=== PATIENT | male | born 1985 | race African-American/Black ===

== ENCOUNTER 2017-02-22 21:45 | Emergency (ER) | payer OTHER ==
[~2017-02-22] VITALS: Ht 170.2 cm; Wt 75.0 kg
[2017-02-22 21:46] VITALS: BP 129/80; PULSE 87; RESP 16; TEMP 97.9; O2SAT 98
--- NOTE | 2017-02-22 23:55 | PD ---
HPI Chief Complaint: Dizziness Time Seen by Provider: 23:39 Travel History International Travel<30 days: No Contact w/Intl Traveler<30days: No Traveled to known affect area: No History of Present Illness HPI 32-year-old male here with his and parents for evaluation of an episode of nauseousness, dizziness, lightheadedness. Symptoms occurred at around 6:00 PM it occurred suddenly while at rest. The patient did not have a syncopal episode , however he felt as though he may pass out. States that his symptoms have since improved. He has not had a fever, chills, cough, or recent illness. No chest pain or dyspnea. Apparently he has had a couple of similar episodes in the past. He is not on any medication. He denies alcohol or illicit drug use. He does not smoke cigarettes. No paresthesias or motor deficits. He still feels some mild generalized weakness. [facility]LY [facility] Past Medical History Immunizations Current: Yes Tetanus Vaccination: Unknown Influenza Vaccination: No Social History Alcohol Use: No Tobacco Use: No Substance Use: No Allergies-Medications (Allergen,Severity, Reaction): Coded Allergies: No Known Allergies (Unverified , 02/22/17) Reported Meds & Prescriptions Reported Meds & Active Scripts Active No Active Prescriptions or Reported Medications Review of Systems Except as stated in HPI: all other systems reviewed are Neg Physical Exam Narrative GENERAL: Well-developed, well-nourished, awake, alert, comfortable, no apparent distress. SKIN: Focused skin assessment warm/dry. No rashes. No pallor. HEAD: Atraumatic. Normocephalic. EYES: Pupils equal and round. No scleral icterus. No injection or drainage. ENT: Mucous membranes pink and moist. NECK: Trachea midline. No JVD. CARDIOVASCULAR: Regular rate and rhythm. Distal pulses brisk and equal bilaterally. RESPIRATORY: No accessory muscle use. Clear to auscultation. Breath sounds equal bilaterally. GASTROINTESTINAL: Abdomen soft, non-tender, nondistended. MUSCULOSKELETAL: No obvious deformities. No clubbing. No cyanosis. No edema. NEUROLOGICAL: Awake and alert. No obvious cranial nerve deficits. Motor grossly within normal limits. Normal speech. PSYCHIATRIC: Appropriate mood and affect; insight and judgment normal. Data Data Last Documented VS Vital Signs Date Time Temp Pulse Resp B/P (MAP) Pulse Ox O2 Delivery O2 Flow Rate FiO2 02/22/17 21:46 97.9 87 16 129/80 (96) 98 Room Air Orders Orders Electrocardiogram (02/22/17 22:02) Complete Blood Count With Diff (02/22/17 22:02) Comprehensive Metabolic Panel (02/22/17 22:02) Magnesium (Mg) (02/22/17 22:02) Ckmb (Isoenzyme) Profile (02/22/17 22:02) Troponin I (02/22/17 22:02) Influenzae A/B Antigen (02/22/17 23:45) Thyroid Stimulating Hormone (02/22/17 22:02) Sodium Chlorid 0.9% 500 Ml Inj (Ns 500 M (02/23/17 00:45) CKMB (02/23/17 00:30) CKMB% (02/23/17 00:30) Arterial Blood Gas (Abg) (02/23/17 ) Labs Laboratory Tests Test 02/22/17 23:50 02/23/17 00:30 White Blood Count 9.6 TH/MM3 Red Blood Count 5.28 MIL/MM3 Hemoglobin 15.6 GM/DL Hematocrit 46.6 % Mean Corpuscular Volume 88.3 FL Mean Corpuscular Hemoglobin 29.5 PG Mean Corpuscular Hemoglobin Concent 33.4 % Red Cell Distribution Width 13.7 % Platelet Count 216 TH/MM3 Mean Platelet Volume 9.8 FL Neutrophils (%) (Auto) 85.3 % Lymphocytes (%) (Auto) 9.4 % Monocytes (%) (Auto) 3.1 % Eosinophils (%) (Auto) 0.2 % Basophils (%) (Auto) 2.0 % Neutrophils # (Auto) 8.2 TH/MM3 Lymphocytes # (Auto) 0.9 TH/MM3 Monocytes # (Auto) 0.3 TH/MM3 Eosinophils # (Auto) 0.0 TH/MM3 Basophils # (Auto) 0.2 TH/MM3 CBC Comment AUTO DIFF Blood Urea Nitrogen 9 MG/DL Creatinine 1.26 MG/DL Random Glucose 93 MG/DL Total Protein 8.6 GM/DL Albumin 4.3 GM/DL Calcium Level 9.1 MG/DL Magnesium Level 2.3 MG/DL Alkaline Phosphatase 49 U/L Aspartate Amino Transf (AST/SGOT) 14 U/L Alanine Aminotransferase (ALT/SGPT) 22 U/L Total Bilirubin 0.2 MG/DL Sodium Level 139 MEQ/L Potassium Level 4.4 MEQ/L Chloride Level 105 MEQ/L Carbon Dioxide Level 27.7 MEQ/L Anion Gap 6 MEQ/L Estimat Glomerular Filtration Rate 81 ML/MIN Total Creatine Kinase 288 U/L Creatine Kinase MB LESS THAN 0.5 NG/ML Troponin I LESS THAN 0.02 NG/ML Thyroid Stimulating Hormone 3rd Gen 0.782 uIU/ML MDM Medical Decision Making Medical Screen Exam Complete: Yes Emergency Medical Condition: Yes Interpretation(s) EKG: Sinus, rate 88, leftward axis, normal intervals, no acute ischemic abnormality. Differential Diagnosis Syncope/near-syncope, dysrhythmia, metabolic abnormality, dehydration, vertigo, anemia, influenza/viral illness Narrative Course Vital signs are within normal limits. CBC is essentially unremarkable. CMP is unremarkable. TSH is 0.782. Cardiac enzymes are negative. Influenza is negative. The patient was given 500 cc of normal saline IV and feels significantly improved. He is overall very well-appearing. He is awake and alert and there are no focal deficits. His entire family were made aware of all findings. Just prior to discharging the patient, the patient's father who was in the room had a near syncopal episode. It is cold outside and they have been running their heater. ABG was ordered. This was signed out to my PA to follow-up with. If this is normal, then the patient can be discharged home with outpatient follow-up with his primary care physician this week. Diagnosis Primary Impression: Lightheadedness Additional Impression: Malaise Referrals: Primary Care Physician 3 days Additional Instructions: Follow-up with your primary care physician this week. Return to the emergency department for worsening symptoms or any other concerns. Scripts No Active Prescriptions or Reported Meds Disposition: 01 DISCHARGE HOME Condition: Stable Jack Nolen MD Feb 22, 2017 23:55
[2017-02-23 00:20] LABS: AUTOMATED NEUTROPHIL # 8.2 TH/MM3 (1.8-7.7); BASOPHIL # 0.2 TH/MM3 (0-0.2); EOSINOPHIL % 0.2 % (0.0-4.0); HEMATOCRIT 46.6 % (39.0-51.0); HEMOGLOBIN 15.6 GM/DL (13.0-17.0); LYMPH % 9.4 % (9.0-44.0); LYMPHOCYTE # 0.9 TH/MM3 (1.0-4.8); MEAN CELL VOLUME 88.3 FL (80.0-100.0); MEAN CORPUSCULAR HEMOGLOBIN 29.5 PG (27.0-34.0); MEAN CORPUSCULAR HGB CONC 33.4 % (32.0-36.0); MEAN PLATELET VOLUME 9.8 FL (7.0-11.0); MONO % 3.1 % (0.0-8.0); MONOCYTE # 0.3 TH/MM3 (0-0.9); NEUT % 85.3 % (16.0-70.0); PLATELET COUNT 216 TH/MM3 (150-450); RED BLOOD COUNT 5.28 MIL/MM3 (4.50-5.90); RED CELL DISTRIBUTION WIDTH 13.7 % (11.6-17.2); WHITE BLOOD COUNT 9.6 TH/MM3 (4.0-11.0)
[2017-02-23] MEDS ORDERED: SODIUM CHLORID 0.9% 500 ML INJ 500 ML IV ONE (00:45)
[2017-02-23 01:15] LABS: ALKALINE PHOSPHATASE 49 U/L (45-117); TOTAL BILIRUBIN ADULT 0.2 MG/DL (0.2-1.0); TOTAL PROTEIN 8.6 GM/DL (6.4-8.2); TROPONIN I LESS THAN 0.02 NG/ML (0.02-0.05)
[2017-02-23 01:16] LABS: ALBUMIN 4.3 GM/DL (3.4-5.0); ALT (GPT) 22 U/L (12-78); AST (GOT) 14 U/L (15-37); BLOOD UREA NITROGEN 9 MG/DL (7-18); CALCIUM 9.1 MG/DL (8.5-10.1); CHLORIDE 105 MEQ/L (98-107); CREATININE 1.26 MG/DL (0.60-1.30); GLOMERULAR FILTRATION RATE 81 ML/MIN (>89); GLUCOSE,RANDOM 93 MG/DL (74-106); MAGNESIUM 2.3 MG/DL (1.5-2.5)
[2017-02-23 01:17] LABS: BICARBONATE 27.7 MEQ/L (21.0-32.0); SODIUM (NA) 139 MEQ/L (136-145)
--- NOTE | 2017-02-23 02:25 | PD ---
Physical Exam Date Seen by Provider: Feb 23, 2017 Time Seen by Provider: 02:23 Data Data Last Documented VS Vital Signs Date Time Temp Pulse Resp B/P (MAP) Pulse Ox O2 Delivery O2 Flow Rate FiO2 02/22/17 21:46 97.9 87 16 129/80 (96) 98 Room Air Orders Orders Electrocardiogram (02/22/17 22:02) Complete Blood Count With Diff (02/22/17 22:02) Comprehensive Metabolic Panel (02/22/17 22:02) Magnesium (Mg) (02/22/17 22:02) Ckmb (Isoenzyme) Profile (02/22/17 22:02) Troponin I (02/22/17 22:02) Influenzae A/B Antigen (02/22/17 23:45) Thyroid Stimulating Hormone (02/22/17 22:02) Sodium Chlorid 0.9% 500 Ml Inj (Ns 500 M (02/23/17 00:45) CKMB (02/23/17 00:30) CKMB% (02/23/17 00:30) Arterial Blood Gas (Abg) (02/23/17 ) Labs Laboratory Tests Test 02/22/17 23:50 02/23/17 00:30 02/23/17 02:01 White Blood Count 9.6 TH/MM3 Red Blood Count 5.28 MIL/MM3 Hemoglobin 15.6 GM/DL Hematocrit 46.6 % Mean Corpuscular Volume 88.3 FL Mean Corpuscular Hemoglobin 29.5 PG Mean Corpuscular Hemoglobin Concent 33.4 % Red Cell Distribution Width 13.7 % Platelet Count 216 TH/MM3 Mean Platelet Volume 9.8 FL Neutrophils (%) (Auto) 85.3 % Lymphocytes (%) (Auto) 9.4 % Monocytes (%) (Auto) 3.1 % Eosinophils (%) (Auto) 0.2 % Basophils (%) (Auto) 2.0 % Neutrophils # (Auto) 8.2 TH/MM3 Lymphocytes # (Auto) 0.9 TH/MM3 Monocytes # (Auto) 0.3 TH/MM3 Eosinophils # (Auto) 0.0 TH/MM3 Basophils # (Auto) 0.2 TH/MM3 CBC Comment AUTO DIFF Differential Comment AUTO DIFF CONFIRMED Platelet Estimate NORMAL Platelet Morphology Comment NORMAL Blood Urea Nitrogen 9 MG/DL Creatinine 1.26 MG/DL Random Glucose 93 MG/DL Total Protein 8.6 GM/DL Albumin 4.3 GM/DL Calcium Level 9.1 MG/DL Magnesium Level 2.3 MG/DL Alkaline Phosphatase 49 U/L Aspartate Amino Transf (AST/SGOT) 14 U/L Alanine Aminotransferase (ALT/SGPT) 22 U/L Total Bilirubin 0.2 MG/DL Sodium Level 139 MEQ/L Potassium Level 4.4 MEQ/L Chloride Level 105 MEQ/L Carbon Dioxide Level 27.7 MEQ/L Anion Gap 6 MEQ/L Estimat Glomerular Filtration Rate 81 ML/MIN Total Creatine Kinase 288 U/L Creatine Kinase MB LESS THAN 0.5 NG/ML Troponin I LESS THAN 0.02 NG/ML Thyroid Stimulating Hormone 3rd Gen 0.782 uIU/ML Blood Gas Puncture Site LT RADIAL Blood Gas Patient Temperature 98.6 Blood Gas HCO3 25 mmol/L Blood Gas Base Excess 0.6 mmol/L Blood Gas Oxygen Saturation 95 % Arterial Blood pH 7.38 Arterial Blood Partial Pressure CO2 43 mmHg Arterial Blood Partial Pressure O2 86 mmHG Arterial Blood Oxygen Content 22.5 Vol % Arterial Blood Carboxyhemoglobin 0.5 % Arterial Blood Methemoglobin 0.9 % Blood Gas Hemoglobin 16.8 G/DL Oxygen Delivery Device ROOM AIR Blood Gas Inspired Oxygen 21 % [facility] Medical Record Reviewed: Yes Supervised Visit with ALEX: Yes Interpretation(s) Laboratory Tests Test 02/22/17 23:50 02/23/17 00:30 02/23/17 02:01 White Blood Count 9.6 TH/MM3 Red Blood Count 5.28 MIL/MM3 Hemoglobin 15.6 GM/DL Hematocrit 46.6 % Mean Corpuscular Volume 88.3 FL Mean Corpuscular Hemoglobin 29.5 PG Mean Corpuscular Hemoglobin Concent 33.4 % Red Cell Distribution Width 13.7 % Platelet Count 216 TH/MM3 Mean Platelet Volume 9.8 FL Neutrophils (%) (Auto) 85.3 % Lymphocytes (%) (Auto) 9.4 % Monocytes (%) (Auto) 3.1 % Eosinophils (%) (Auto) 0.2 % Basophils (%) (Auto) 2.0 % Neutrophils # (Auto) 8.2 TH/MM3 Lymphocytes # (Auto) 0.9 TH/MM3 Monocytes # (Auto) 0.3 TH/MM3 Eosinophils # (Auto) 0.0 TH/MM3 Basophils # (Auto) 0.2 TH/MM3 CBC Comment AUTO DIFF Differential Comment AUTO DIFF CONFIRMED Platelet Estimate NORMAL Platelet Morphology Comment NORMAL Blood Urea Nitrogen 9 MG/DL Creatinine 1.26 MG/DL Random Glucose 93 MG/DL Total Protein 8.6 GM/DL Albumin 4.3 GM/DL Calcium Level 9.1 MG/DL Magnesium Level 2.3 MG/DL Alkaline Phosphatase 49 U/L Aspartate Amino Transf (AST/SGOT) 14 U/L Alanine Aminotransferase (ALT/SGPT) 22 U/L Total Bilirubin 0.2 MG/DL Sodium Level 139 MEQ/L Potassium Level 4.4 MEQ/L Chloride Level 105 MEQ/L Carbon Dioxide Level 27.7 MEQ/L Anion Gap 6 MEQ/L Estimat Glomerular Filtration Rate 81 ML/MIN Total Creatine Kinase 288 U/L Creatine Kinase MB LESS THAN 0.5 NG/ML Troponin I LESS THAN 0.02 NG/ML Thyroid Stimulating Hormone 3rd Gen 0.782 uIU/ML Blood Gas Puncture Site LT RADIAL Blood Gas Patient Temperature 98.6 Blood Gas HCO3 25 mmol/L Blood Gas Base Excess 0.6 mmol/L Blood Gas Oxygen Saturation 95 % Arterial Blood pH 7.38 Arterial Blood Partial Pressure CO2 43 mmHg Arterial Blood Partial Pressure O2 86 mmHG Arterial Blood Oxygen Content 22.5 Vol % Arterial Blood Carboxyhemoglobin 0.5 % Arterial Blood Methemoglobin 0.9 % Blood Gas Hemoglobin 16.8 G/DL Oxygen Delivery Device ROOM AIR Blood Gas Inspired Oxygen 21 % Differential Diagnosis . Narrative Course I was asked to review the patient's differential as well as his ABG. Patient's differential shows a slight elevation in his neutrophils and his carboxyhemoglobin is 0.5. The patient is medically stable for discharge. This is lightheadedness, malaise Diagnosis Primary Impression: Lightheadedness Additional Impression: Malaise Referrals: Primary Care Physician 3 days Additional Instruction: Follow-up with your primary care physician this week. Return to the emergency department for worsening symptoms or any other concerns. Med/Other Pt SpecificInfo: No Meds Exist/No RX given Scripts No Active Prescriptions or Reported Meds Disposition: 01 DISCHARGE HOME Condition: Stable Gibran Alvarado Feb 23, 2017 02:25
[2017-02-23 02:39] VITALS: BP 116/70
--- NOTE | 2017-02-23 08:07 | EKG ---
Date Performed: 02/22/2017 Time Performed: 23:48:21 PTAGE: 32 years EKG: Sinus rhythm BORDERLINE LEFT AXIS DEVIATION POSSIBLE RIGHT VENTRICULAR CONDUCTION DELAY BORDERLINE ECG No signifi cant change from prior electrocardiogram. DOCTOR: Lalito Garcia Interpretating Date/Time 02/23/2017 08:05:50
== END 2017-02-23 02:45 | disposition home or self-care (01) ==
LOC: NEPD 21:45
DX: R42 Dizziness and giddiness (principal); R53.1 Weakness
CPT/HCPCS: 36600; 80053; 82550; 82552; 82805; 83735; 84443; 84484; 85025; 87804; 93005; 96360; 99284; J7040